=== PATIENT | male | born 1990 | race Two or more races ===

== ENCOUNTER → 2019-04-30 | Outpatient (CLI) | payer BC | END | disposition home or self-care (01) | LOC: RAD 16:00 | PROVIDERS: ATTEND Physician Assistant | DX: M62.830 Muscle spasm of back (principal); R76.11 Nonspecific reaction to tuberculin skin test without active tuberculosis; M54.5 Low back pain; R07.9 Chest pain, unspecified | CPT/HCPCS: 71045; 72070 ==